=== PATIENT | male | born 1985 | race Caucasian/White ===

== ENCOUNTER 2016-09-09 14:03 | Emergency (ER) | payer BC, OTHER ==
--- NOTE | 2016-09-17 14:40 | ER ---
ADMIT: 09/09/2016 RM/LOC: ER [facility] MR#: [id number] [address] [id number] SANIYA COLLIER [address] [place], [place] [address], [place] [address] Emergency Room Report SEX: M AGE: 31 : 1985 DATE: 09/09/2016 ADDENDUM: This patient comes to the ER because he had a sudden onset of severe flank pain on the right side at 5 a.m. this morning. It comes and goes and when it comes, it is very strong causing him to vomit and break out in a sweat. He has had kidney stones in the past and this feels similar. On physical exam, he is pale and diaphoretic and his pain is in the right flank area. CT scan showed a small, 1 mm stone in his ureter. He was given Toradol and [place] in the emergency room. I wrote a prescription for [place]. He should strain his urine and follow up with Urology as needed. His CBC and BMP were normal. Please see my T sheet. KANDI Paz / Leo Garrett MD / aaronl JOB #: [id number] CC: Leo Garrett MD, Attending Physician Shadi Mcclure MD, Family Physician
== END 2016-09-09 16:15 | disposition home or self-care (01) ==
LOC: ER 14:03
DX: N13.2 Hydronephrosis with renal and ureteral calculous obstruction (principal); Z87.442 Personal history of urinary calculi; Z79.899 Other long term (current) drug therapy; Z87.891 Personal history of nicotine dependence